=== PATIENT | male | born 1965 ===

== ENCOUNTER 2022-09-23 15:41 | Inpatient (IN) | payer OTHER ==
[~2022-09-23] VITALS: Ht 172.7 cm; Wt 105.7 kg
[~2022-09-23 15:41] MED LIST: CLIN300C2 PO; LOSA100T2 PO
[2022-09-23 16:26] VITALS: BP 130/59
--- NOTE | 2022-09-23 16:48 | NUR ---
PATIENT AMBULATED TO BED 1.
[2022-09-23] MEDS ORDERED: NACL 0.9% 1,000 ML IV SCH (16:50)
[2022-09-23] MEDS ORDERED: ACETAMINOPHEN 325 MG TAB PO ONE (17:25)
[2022-09-23 17:32] LABS: APPEARANCE,URINE CLEAR (CLEAR); BASOPHILS % (AUTO) 0.3 % (0.0-2.0); BILIRUBIN,URINE 1+ (NEGATIVE); BLOOD, URINE NEGATIVE (NEGATIVE); EOSINOPHILS % (AUTO) 0.1 % (0.0-4.0); HEMATOCRIT 43.9 % (36-52); HEMOGLOBIN 14.9 g/dL (12.0-18.0); LEUKOCYTE ESTERASE ,URINE NEGATIVE (NEGATIVE); LYMPHOCYTES # (AUTO) 0.4 K/uL (2.0-11.5); LYMPHOCYTES % (AUTO) 6.3 % (20.5-51.1); MEAN CORPUSCULAR HEMOGLOBIN 32 pg (27-31); MEAN CORPUSCULAR HGB CONC 34 g/dL (33-37); MEAN CORPUSCULAR VOLUME 94.4 fL (80-94); MONOCYTES # (AUTO) 0.2 K/uL (0.8-1.0); NEUTROPHILS # (AUTO) 6.3 K/uL (1.8-7.7); NEUTROPHILS % (AUTO) 90.3 % (42.2-75.2); NITRITE, URINE NEGATIVE (NEGATIVE); PH,URINE 6.5 (5.0-9.0); PLATELET COUNT (AUTO) 302 K/uL (140-450); RED BLOOD CELL COUNT(AUTO) 4.65 MIL/uL (4.20-6.10); RED CELL DISTRIBUTION WIDTH 14.2 % (11.6-13.7); UGLUCOSE NEGATIVE (NEGATIVE)
[2022-09-23 17:36] LABS: COLOR,URINE YELLOW (YELLOW)
[2022-09-23 17:54] LABS: ALBUMIN 3.5 g/dL (3.4-5.0); ANION GAP 14.4 (8-16); ASPARTATE AMINOTRANSFERASE 220 U/L (15-37); CARBON DIOXIDE 27.6 mmol/L (21-32); CHLORIDE 98 mmol/L (98-107); CREATININE 1.6 mg/dL (0.6-1.3); GFR ARICAN-AMERICAN 57 mL/min (>90); GLUCOSE 126 mg/dL (74-106); LIPASE 106 U/L (73-393); SODIUM SERUM 136 mmol/L (136-145); TOTAL BILIRUBIN 2.3 mg/dL (0.0-1.0); UREA NITROGEN, BLOOD 18 mg/dL (7-18)
[2022-09-23] MEDS ORDERED: cefTRIAXone 1,000 MG VIAL ONE (18:27)
--- NOTE | 2022-09-23 20:41 | NUR ---
RECEIVED REPORT FROM DAY SHIFT PATIENT IA AoX4, MMBULATORY TO BATHROOM, PIV LOCATED IN LEFT AC SALINE LOCATED. REPORT HUNGRY, 1 SANDWICH GIVEN PER DOCTOR YEVGENIY. AWAITING FOR ADMIT TO [facility] [[email or web address]
[2022-09-23] MEDS ORDERED: ACETAMINOPHEN 325 MG TAB PO PRN (22:05)
[2022-09-23] MEDS ORDERED: ONDANSETRON 4 MG/2 ML VIAL IVP PRN (22:05)
[2022-09-23] MEDS ORDERED: LORazepam 2 MG/ML VIAL IVP PRN (22:05)
[2022-09-23] MEDS ORDERED: MORPHINE SULFATE 2 MG/ML SYR IVP PRN (22:05)
[2022-09-23] MEDS: NACL 0.9% 1,000 ML IV SCH (22:41)
[2022-09-23] MEDS ORDERED: METO50TE2 PO (23:05)
[2022-09-23] MEDS ORDERED: SULF-58 PO (23:05)
[2022-09-23] MEDS ORDERED: VALA1TAB40 PO (23:05)
--- NOTE | 2022-09-23 23:23 | NUR ---
ADMITTED PATIENT TO [facility] FROM ER VIA WHEELCHAIR [id number]. CC: FEVER BODY ACHES FOR 3 DAYS. NO SOB NOTED. RESPIRATION EVEN UNLABORED. AMBULATORY. MRSA SCREENING DONE. IVF NS 100 ML/HR INFUSING IN THE LEFT AC. NO COMPLAINTS OF PAIN AT THIS TIME. CALL LIGHT WITHIN REACH.
--- NOTE | 2022-09-24 | NUR ---
Patient will be admitted to care of Dr. Montoya. Admited to Tele. Will go to room 117 . Belongings list completed. Report to Marion.
[2022-09-24 04:00] VITALS: BP 119/77
--- NOTE | 2022-09-24 07:10 | NUR ---
receive the patient from the compounding pharmacy technician rn in rm 117 aox4 low grade fever , will continue to monitor
--- NOTE | 2022-09-24 07:26 | NUR ---
ENDORSED PATIENT TO DAY SHIFT NURSE FOR CONTINUITY OF CARE.
[2022-09-24 07:27] LABS: BASOPHILS % (AUTO) 0.5 % (0.0-2.0); EOSINOPHILS # (AUTO) 0.1 K/uL (0-0.4); EOSINOPHILS % (AUTO) 1.3 % (0.0-4.0); HEMATOCRIT 42.1 % (36-52); HEMOGLOBIN 14.2 g/dL (12.0-18.0); LYMPHOCYTES # (AUTO) 0.8 K/uL (2.0-11.5); MEAN CORPUSCULAR HEMOGLOBIN 32 pg (27-31); MEAN CORPUSCULAR HGB CONC 34 g/dL (33-37); MEAN CORPUSCULAR VOLUME 95.5 fL (80-94); MONOCYTES # (AUTO) 0.3 K/uL (0.8-1.0); MONOCYTES % (AUTO) 5.7 % (1.7-9.3); NEUTROPHILS # (AUTO) 4.6 K/uL (1.8-7.7); NEUTROPHILS % (AUTO) 78.5 % (42.2-75.2); PLATELET COUNT (AUTO) 238 K/uL (140-450); WHITE BLOOD COUNT (AUTO) 5.9 K/uL (4.8-10.8)
[2022-09-24 08:00] VITALS: BP 115/72
[2022-09-24 08:03] LABS: ANION GAP 13.2 (8-16); CARBON DIOXIDE 25.9 mmol/L (21-32); CREATININE 1.4 mg/dL (0.6-1.3); MAGNESIUM 1.9 mg/dL (1.8-2.4); POTASSIUM 4.1 mmol/L (3.5-5.1); TOTAL BILIRUBIN 2.2 mg/dL (0.0-1.0)
[2022-09-24] MEDS: NACL 0.9% 1,000 ML IV SCH ×2 (09:03→17:27)
--- NOTE | 2022-09-24 09:19 | NUR ---
PATIENT HAS BEEN SCREENED AND CATEGORIZED LOW NUTRITION RISK. PATIENT WILL BE SEEN WITHIN 7 DAYS OF ADMISSION. 09/30/22 REVIEWED BY NIYA GARCIA RD
--- NOTE | 2022-09-24 14:00 | NUR ---
DC PLANNING ASSESSMENT COMPLETE PLEASE REFER TO ASSESSMENT FOR ADDITIONAL DETAILS PT IS A 57 YR OLD MALE ADMITTED TO [facility] FROM HOME WITH DX OF FEVER. PT HAS PAST MEDICAL HX OF HYPERTENSION. PT REPORTS BEING INDEPENDENT IN ALL ACTIVITIES AND DENIES USE OF DME PT RESIDES ALONE IN A SINGLE STORY HOME, AT THE ADDRESS LISTED ON FILE. PT REPORTS 5 HOUSES ON THE PROPERTY IN WHICH EACH OF HIS SIBLINGS RESIDES. PT PROVIDED WITH PERMISSION TO SCHEDULE FOLLOW UP APPT WITH PCP ONCE CLEARED FOR DC. PT REPORTS TENTATIVE DC PLAN IS TO RETURN HOME WITH FAMILY PROVIDING TRANSPORTATION, ONCE MEDICALLY STABLE. Addendum: 09/24/22 at 1401 by Virginie SMITH Amended: Links added.
[2022-09-24 16:00] VITALS: BP 123/77
--- NOTE | 2022-09-24 19:12 | NUR ---
will endorse to shift commander rn for continuity of care
[2022-09-24 20:00] VITALS: BP 129/79
--- NOTE | 2022-09-24 20:10 | NUR ---
PATIENT IN BED RESTING. NO ACUTE DISTRESS NOTED. BREATHING EVEN UNLABORED ON ROOM AIR. DENIES PAIN. IVF NS 100 ML/HR INFUSING IN THE LEFT AC. CALL LIGHT WITHIN REACH. PATIENT IS AMBULATORY. BED WHEELS LOCKED.
--- NOTE | 2022-09-24 21:24 | NUR ---
PATIENT IV INFILTRATED. STARTED A NEW IV LINE TO THE RIGHT HAND WITH GOOD BACK FLOW OF BLOOD. TOLERATED WELL.
[2022-09-24] MEDS ORDERED: VANCOMYCIN PER PHARMACY MC PRN (22:55)
[2022-09-25] VITALS: BP 116/77
[2022-09-25] MEDS ORDERED: VANCOMYCIN 1,000 MG VIAL ONE ×2 (00:26→02:17)
[2022-09-25] MEDS ORDERED: VANCOMYCIN 1GM/DEXT 5% PREMIX 200 ML IV SCH ×2 (01:30)
[2022-09-25 04:00] VITALS: BP 120/77
[2022-09-25] MEDS: NACL 0.9% 1,000 ML IV SCH (04:05)
--- NOTE | 2022-09-25 07:26 | NUR ---
GAVE REPORT TO MORNING SHIFT NURSE FOR CONTINUITY OF CARE. PATIENT STABLE.
--- NOTE | 2022-09-25 07:30 | NUR ---
RECEIVED PT FROM NIGHT RN, PT IS ASLEEP AND LYING ON THE BED WITH SIDE RAILS UP AND CALL LIGHT WITHIN REACH, IV LINE NOTED ON THE RIGHT HAND G. 22 WITH NS INFUSING AT 100ML/HR, PT IS ON ROOM AIR, VISIBLE CHEST RISE AND FALL, RESPIRATION IS EVEN, ON AIRBORNE ISOLATION FOR HERPES ZOSTER, NO SIGN OF DISTRESS NOTED AND WILL CONTINUE TO MONITOR PT.
[2022-09-25 08:00] VITALS: BP 123/85
[2022-09-25 08:46] LABS: ANION GAP 12.4 (8-16); CARBON DIOXIDE 25.7 mmol/L (21-32); CREATININE 1.1 mg/dL (0.6-1.3); POTASSIUM 4.1 mmol/L (3.5-5.1)
[2022-09-25 12:00] VITALS: BP 128/79
[2022-09-25] MEDS ORDERED: VANCOMYCIN 1,000 MG in DEXTROSE 5% 250 ML IV SCH (12:00)
--- NOTE | 2022-09-25 14:15 | NUR ---
PT'S GOWN AND BEDDINGS WERE CHANGED NOW, ROOM WAS FREE FROM CLUTTER.
[2022-09-25] MEDS ORDERED: LINE600T4 PO (15:51)
[2022-09-25 16:00] VITALS: BP 116/72
[2022-09-25 16:04] LABS: BILIRUBIN,DIRECT 0.5 mg/dL (0.0-0.3)
[2022-09-25] MEDS ORDERED: LINEZOLID 600 MG TAB PO SCH ×2 (16:30→21:00)
--- NOTE | 2022-09-25 18:11 | NUR ---
DISCHARGE PT TO HOME ACCOMPANIED BY SISTER, DISCHARGE TEACHINGS GIVEN TO PT AND VERBALIZED UNDERSTANDING, PRESCRIPTION WAS SENT TO PHARMACY PT RECEIVED CONFIRMATION, IV LINE REMOVED AND PT IS STABLE AT THIS TIME.
[2022-09-25 18:53] LABS: URINE TOTAL PROTEIN 22.6 mg/dL (0-12)
--- NOTE | 2022-09-28 15:33 | NUR ---
CALLED DR JARQUIN'S OFFICE LOCATED AT [address] [address].. SPOKE WITH ZAIRE AND WAS ABLE TO MAKE FOLLOW UP APPOINTMENT FOE 10/06/2022 AT 1145. SPOKE WITH PT AND HE IS AWARE OF THE ABOVE INFORMATION.
== END 2022-09-25 18:12 | disposition home or self-care (01) | DRG 720 ==
LOC: MED 15:41 → MTU 22:10
PROVIDERS: ADMIT Hospitalist; ATTEND Hospitalist
DX: A41.9 Sepsis, unspecified organism (principal); N17.9 Acute kidney failure, unspecified; K76.0 Fatty (change of) liver, not elsewhere classified; I13.10 Hypertensive heart and chronic kidney disease without heart failure, with stage 1 through stage 4 chronic kidney disease, or unspecified chronic kidney disease; B02.9 Zoster without complications; R74.01 Elevation of levels of liver transaminase levels; Z20.822 Contact with and (suspected) exposure to COVID-19; Z88.0 Allergy status to penicillin; Z79.899 Other long term (current) drug therapy; N18.31 Chronic kidney disease, stage 3a; L02.811 Cutaneous abscess of head [any part, except face]; B95.61 Methicillin susceptible Staphylococcus aureus infection as the cause of diseases classified elsewhere
CPT/HCPCS: 36415; 71045; 76705; 76770; 80048; 80053; 80076; 81003; 82550; 82570; 83605; 83690; 83735; 84300; 84443; 84484; 85025; 87040; 87070; 87081; 87086; 87186; 96365; 99285; J0696; J3370; J7060; Q0092

== ENCOUNTER 2023-09-23 22:25 | Emergency (ER) | payer OTHER ==
[~2023-09-23] VITALS: Ht 172.7 cm; Wt 108.9 kg
[~2023-09-23 22:25] MED LIST changes: -CLIN300C2 PO; +LINE600T4 PO; +LOSA-272 PO; -LOSA100T2 PO; +METO50TE2 PO; +VALA1TAB40 PO
[2023-09-23 23:00] VITALS: BP 134/88; PULSE 92; RESP 17; TEMP 97.8; O2SAT 94
[2023-09-24] MEDS ORDERED: NAPR-54 PO (05:51)
[2023-09-24 06:13] VITALS: BP 123/85; PULSE 69; RESP 15; TEMP 97.8; O2SAT 98
== END 2023-09-24 06:13 | disposition home or self-care (01) ==
LOC: MED 22:25
DX: R22.41 Localized swelling, mass and lump, right lower limb (principal); I10 Essential (primary) hypertension; Z79.899 Other long term (current) drug therapy; Z88.0 Allergy status to penicillin
CPT/HCPCS: 73630; 93970; 99284